=== PATIENT | female | born 1990 | race Caucasian/White ===

== ENCOUNTER → 2017-01-23 | Outpatient (REF) | payer BC | LOC: M LAB REF 17:25 | PROVIDERS: ATTEND Physician Assistant Medical | DX: Z12.4 Encounter for screening for malignant neoplasm of cervix (principal) ==

== ENCOUNTER 2020-02-03 16:00 | Emergency (ER) | payer OTHER, SELFPAY ==
[~2020-02-03] VITALS: Ht 167.6 cm; Wt 69.7 kg
[2020-02-03 17:24] LABS: BASO % 0.3 % (0.0-1.0); EOS # 0.3 10^3/uL (0.0-0.5); EOS % 3.1 % (0.0-3.0); HEMATOCRIT 43.3 % (36.0-47.0); HEMOGLOBIN 14.1 g/dl (12.0-15.5); LYMPH # 2.1 10^3/uL (1.5-5.0); LYMPH % 19.7 % (24.0-44.0); MEAN CORPUSCULAR HEMOGLOBIN 30.8 pg (27.0-33.0); MEAN CORPUSCULAR HGB CONC 32.6 g/dl (32.0-36.5); MEAN CORPUSCULAR VOLUME 94.5 fl (80.0-96.0); MONO # 0.7 10^3/uL (0.0-0.8); MONO % 6.7 % (0.0-5.0); NEUTROPHILS # 7.5 10^3/uL (1.5-8.5); PLATELET COUNT, AUTOMATED 309 10^3/uL (150-450); RED BLOOD COUNT 4.58 10^6/uL (4.00-5.40); WHITE BLOOD COUNT 10.8 10^3/uL (4.0-10.0)
[2020-02-03 17:43] LABS: ALT/SGPT 16 U/L (12-78); BILIRUBIN,DIRECT < 0.1 MG/DL (0.0-0.2); BILIRUBIN,TOTAL 0.3 MG/DL (0.2-1.0); LIPASE 295 U/L (73-393); TOTAL PROTEIN 7.7 GM/DL (6.4-8.2)
[2020-02-03] MEDS ORDERED: ISOVUE-370 76% 100ML VIAL As Ordered ONE (18:08)
--- NOTE | 2020-02-03 19:43 | REPVR ---
PROCEDURE INFORMATION: Exam: CT Abdomen And Pelvis With Contrast Exam date and time: 02/03/2020 6:16 PM Age: 29 years old Clinical indication: Abdominal pain; Flank; Right; Additional info: R abd pain TECHNIQUE: Imaging protocol: Computed tomography of the abdomen and pelvis with intravenous contrast. Radiation optimization: All CT scans at this facility use at least one of these dose optimization techniques: automated exposure control; mA and/or kV adjustment per patient size (includes targeted exams where dose is matched to clinical indication); or iterative reconstruction. Contrast material: ISOVUE 370; Contrast volume: 100 ml; Contrast route: INTRAVENOUS (IV); COMPARISON: No relevant prior studies available. FINDINGS: Lungs: There is minimal bibasilar linear atelectasis or scar. Probable small hiatal hernia. Liver: There is minimal diffuse fatty liver change. Gallbladder and bile ducts: Normal. No calcified stones. No ductal dilation. Pancreas: Normal. No ductal dilation. Spleen: Normal. No splenomegaly. Adrenals: Normal. No mass. Kidneys and ureters: Normal. No hydronephrosis. Stomach and bowel: There is moderate food debris and fluid in the stomach. No bowel dilatation to indicate obstruction. No pneumatosis. Appendix: The visualized appendix is normal measuring 4 mm. Appendiceal tip is not visualized, obscured by the right ovary. Intraperitoneal space: There is a small amount of free fluid in the right inferior pelvis and right adnexa, likely related to ruptured right ovarian follicle. No Free Air. Vasculature: There is a phlebolith in the left inferior pelvis. Lymph nodes: Unremarkable. No enlarged lymph nodes. Urinary bladder: Unremarkable as visualized. Reproductive: There is a collapsed ruptured follicle with peripheral enhancement within the right ovary measuring 3.7 x 1.2 cm. Small amount of adjacent free fluid in the right adnexa. Uterus and left ovary are grossly unremarkable. Bones/joints: There is mild levoconvex lumbar scoliosis. No acute osseous abnormality. Soft tissues: There is a tiny noninflamed fat containing umbilical hernia. There is metallic artifact from a navel ring. IMPRESSION: 1. 3.7 cm collapsed ruptured right ovarian follicle with associated small amount of free fluid in the right pelvis and adnexa. 2. Minimal diffuse fatty liver change. 3. Probable small hiatal hernia. 4. Tiny noninflamed fat containing umbilical hernia. 5. The visualized portion of the appendix is normal. Appendiceal tip is obscured and not evaluated. Electronically signed by: Dora Dougherty On 02/03/2020 19:42:41 PM
[2020-02-03 21:22] VITALS: BP 143/78
--- NOTE | 2020-02-03 21:50 | REPVR ---
PROCEDURE INFORMATION: Exam: US Pelvis Complete, Transabdominal and US Pelvis, Transvaginal and US Duplex Artery and Vein, Ovaries, Complete Exam date and time: 02/03/2020 9:11 PM Age: 29 years old Clinical indication: Pelvic pain; Additional info: Rlq pain, R/O torsion, R ovarian cyst TECHNIQUE: Imaging protocol: Real-time transabdominal and transvaginal pelvic ultrasound (complete) with image documentation. Transvaginal imaging was used for better evaluation of the endometrium and adnexa. Real-time duplex ultrasound scan of the arterial and venous flow of the ovaries with B-mode, color Doppler flow and spectral waveform analysis. COMPARISON: CT ABD/PEL W/IV CONTRAST ONLY 02/03/2020 6:11 PM FINDINGS: Uterus/cervix: 7.3 x 3.7 x 4.6 cm. Normal endometrial thickness, measuring approximately 11 mm. Right ovary: 5.2 x 2.8 x 3.6 cm. 2.1 x 1.8 x 1.5 cm involuting corpus luteal cyst. No mass. Normal arterial and venous ovarian blood flow. Left ovary: 3.7 x 2.3 x 3.1 cm. No mass. Normal arterial and venous ovarian blood flow. Intraperitoneal space: None. Urinary bladder: Normal. IMPRESSION: Involuting right ovarian corpus luteal cyst. No torsion. Electronically signed by: Gerald James On 02/03/2020 21:49:41 PM
== END 2020-02-03 21:25 | disposition home or self-care (01) ==
LOC: M ED 16:00
DX: N83.11 Corpus luteum cyst of right ovary (principal); K76.0 Fatty (change of) liver, not elsewhere classified; K44.9 Diaphragmatic hernia without obstruction or gangrene; K42.0 Umbilical hernia with obstruction, without gangrene; Z80.0 Family history of malignant neoplasm of digestive organs
CPT/HCPCS: 74177; 76830; 76856; 80047; 80076; 81001; 83690; 84702; 85025; 93976; 99283; Q9967

== ENCOUNTER → 2024-01-15 | Outpatient (CLI) | payer OTHER ==
[2024-01-15 15:54] LABS: FREE T4 1.15 NG/DL (0.89-1.76)
[2024-01-15 15:55] LABS: FOLLICLE STIMULATING HORMONE 4.4 mIU/ML; LUTEINIZING HORMONE 21.2 mIU/ML; THYROID STIMULATING HORMONE 1.682 uIU/ML (0.55-4.78)
[2024-01-15 16:23] LABS: CORTISOL AM 10.5 UG/DL (4.3-22.4)
== END ==
LOC: M PLALAB 09:54
PROVIDERS: ATTEND Nurse Practitioner Adult Health
DX: R68.82 Decreased libido (principal)

== ENCOUNTER → 2024-02-04 | Outpatient (CLI) | payer MEDICAID, OTHER | LOC: M WHC 12:02 | PROVIDERS: ATTEND Nurse Practitioner Adult Health | DX: R10.2 Pelvic and perineal pain (principal); D48.62 Neoplasm of uncertain behavior of left breast ==